=== PATIENT | female | born 1985 | race Hispanic/Latino ===

== ENCOUNTER 2019-06-09 18:01 | Outpatient (CLI) | payer MEDICAID ==
[2019-06-09 19:00] VITALS: BP 112/71
== END 2019-06-09 20:50 | disposition home or self-care (01) ==
LOC: TRG 18:01
PROVIDERS: ATTEND Obstetrics & Gynecology
DX: O47.1 False labor at or after 37 completed weeks of gestation (principal); Z3A.39 39 weeks gestation of pregnancy
CPT/HCPCS: 59025

== ENCOUNTER 2019-06-10 15:53 | Inpatient (IN) | payer MEDICAID ==
[2019-06-10] MEDS ORDERED: XYLOCAINE 2% INFILTRATI ONE (16:12)
[2019-06-10] MEDS ORDERED: STADOL IV PRN (16:12)
[2019-06-10] MEDS ORDERED: MINERAL OIL PO PRN (16:12)
[2019-06-10] MEDS ORDERED: SUBLIMAZE IV PRN (16:12)
[2019-06-10] MEDS ORDERED: BRETHINE SUB-Q PRN (16:12)
[2019-06-10] MEDS ORDERED: BRETHINE IVP PRN (16:12)
[2019-06-10 16:20] LABS: Hematocrit 38.8 % (30.3-42.9); Hemoglobin 13.2 gm/dl (10.1-14.3); Mean Corpuscular HGB Conc 34 % (30-34); Mean Corpuscular Volume 91 fl (79-97); Platelet Count 270 K/mm3 (140-440); Red Blood Count 4.29 M/mm3 (3.65-5.03); Red Cell Distribution Width 13.2 % (13.2-15.2)
--- NOTE | 2019-06-10 16:45 | History and Physical Report ---
History of Present Illness Date of examination: 06/10/19 Date of admission: 06/10/19 15:53 Chief complaint: I'm in labor History of present illness: Pt is a 33 year old who presents at 39.3 weeks in active labor. She has had an uncomplicated course. She is GBS negative. Past History Past Medical History: no pertinent history Past Surgical History: no surgical history Social history: - Obstetrical History Expected Date of Delivery: 06/14/19 Actual Gestation: 39 Week(s) 3 Day(s) : 5 Para: 4 Number of Living Children: 4 Medications and Allergies Allergies Allergy/AdvReac Type Severity Reaction Status Date / Time No Known Allergies Allergy Unverified 06/09/19 19:05 Home Medications Medication Instructions Recorded Confirmed Last Taken Type No Known Home Medications [No 06/09/19 06/09/19 Unknown History Reported Home Medications] Active Meds: Active Medications Butorphanol Tartrate (Stadol) 2 mg IV Q2H PRN PRN Reason: Pain , Severe (7-10) Ephedrine Sulfate (Ephedrine Sulfate) 10 mg IV Q2M PRN PRN Reason: Hypotension Fentanyl (Sublimaze) 100 mcg IV Q2H PRN PRN Reason: Labor Pain Oxytocin/Sodium Chloride (Pitocin/Ns 20 Unit/1000ml Drip) 20 units in 1,000 mls @ 125 mls/hr IV DIRECT MACARENA Oxytocin/Sodium Chloride (Pitocin/Ns 30 Unit/500ml) 30 units in 500 mls @ 1 mls/hr IV TITR MACARENA; Protocol Lactated Ringer's (Lactated Ringers) 1,000 mls @ 125 mls/hr IV DIRECT MACARENA Mineral Oil (Mineral Oil) 30 ml PO QHS PRN PRN Reason: Constipation Terbutaline Sulfate (Brethine) 0.25 mg SUB-Q ONCE PRN PRN Reason: Hyperstimulation/Hypertonicity Terbutaline Sulfate (Brethine) 0.25 mg IVP ONCE PRN PRN Reason: Hyperstimulation/Hypertonicity Review of Systems All systems: negative Genitourinary: vaginal bleeding, leakage of fluid, contractions - Vital Signs Vital signs: Vital Signs Pulse BP 93 H 113/72 06/10/19 16:01 06/10/19 16:01 Temp Pulse Resp BP Pulse Ox 96.8 F L 101 H 107/61 99 06/10/19 16:10 06/10/19 16:39 06/10/19 16:39 06/10/19 16:39 - Physical Exam Breasts: Positive: deferred Cardiovascular: Regular rate, Normal S1, Normal S2 Lungs: Positive: Clear to auscultation, Normal air movement Abdomen: Positive: normal appearance, soft, normal bowel sounds. Negative: distention, tenderness Vulva: both: normal Vagina: Positive: normal moisture. Negative: discharge Cervix: Negative: lesion, discharge Uterus: Positive: normal size, normal contour Adnexa: both: normal Anus/Rectum: Positive: normal perianal skin, heme negative. Negative: rectal mass, hemorrhoids Extremities: Deep Tendon Reflex Grade: Normal +2 - Obstetrical FHR: auscultation normal Cervical Dilatation: 8 Cervical Effacement Percentage: 90 station: -2 Uterine Contraction Pattern: Regular Uterine Contraction Intensity: Moderate Results Result Diagrams: 06/10/19 16:00 Abnormal lab results 06/10/19 Range/Units 16:00 WBC 13.9 H (4.5-11.0) K/mm3 All other labs normal. Assessment and Plan IUP at 39.3 in active labor. Admit to L&D. AROM when able. Anticipate .
--- NOTE | 2019-06-10 16:49 | Procedure Note ---
OB Delivery Note - Delivery Date of Delivery: 06/10/19 Surgeon: SABINE JAUREGUI Estimated blood loss: 200cc - Vaginal Delivery presentation: vertex Delivery position: OA Intrapartum events: precipitous labor- <3hr Delivery induction: none Delivery augmentation: rupture of membranes Delivery monitor: external FHT, external uterine Route of delivery: Delivery placenta: spontaneous Delivery cord: 3 umbilical vessels Episiotomy: none Delivery laceration: none Anesthesia: none Delivery comments: Viable male delivered over intact perineum with no nuchal cord at 1627. Infant had spontaneous cry and was placed on maternal abdomen. Cord clamped and cut when done pulsing. Placenta delivered spontaneously and intact with 3vc. No lacerations. Pt tolerated procedure well. Excellent hemostasis. - Infant A at 1 minute: 9 at 5 minutes: 9 Gender: Male (6 pounds 8 punces)
[2019-06-10] MEDS ORDERED: NORCO 5/325 PO PRN (16:50)
[2019-06-10] MEDS ORDERED: LACTATED RINGERS 1,000 ML IV SCH (17:00)
[2019-06-10] MEDS ORDERED: PITOCin/NS 20 UNIT/1000ML DRIP 20 UNITS/1,000 ML BAG IV SCH ×2 (17:00→18:00)
[2019-06-10] MEDS ORDERED: IBUPROFEN PO PRN (17:00)
[2019-06-10] MEDS ORDERED: PITOCin/NS 30 UNIT/500ML 30 UNITS/500 ML BAG IV SCH (17:00)
[2019-06-10] MEDS ORDERED: PHENERGAN PR PRN (18:34)
[2019-06-10] MEDS ORDERED: TORADOL IV PRN (18:34)
[2019-06-10] MEDS ORDERED: SODIUM CHLORIDE FLUSH SYRINGE 10 ML IV NR (18:34)
[2019-06-10] MEDS ORDERED: TYLENOL PO PRN (18:34)
[2019-06-10] MEDS ORDERED: LANSINOH TP PRN (18:34)
[2019-06-10] MEDS ORDERED: MILK OF MAGNESIA PO PRN (18:34)
[2019-06-10] MEDS ORDERED: ZOFRAN IV PRN (18:34)
[2019-06-10] MEDS ORDERED: DULCOLAX PR PRN (18:34)
[2019-06-10] MEDS ORDERED: BENADRYL PO PRN (18:34)
[2019-06-10] MEDS ORDERED: TUCKS PAD TP PRN (18:34)
[2019-06-10] MEDS ORDERED: PHENERGAN PO PRN (18:34)
[2019-06-10] MEDS: IBUPROFEN PO SCH (19:05)
[2019-06-10] MEDS: COLACE PO SCH (21:28)
[2019-06-10] MEDS: NORCO 5/325 PO PRN (22:12)
[2019-06-11] MEDS: IBUPROFEN PO SCH ×5 (01:35→23:58)
[2019-06-11] MEDS: NORCO 5/325 PO PRN ×3 (03:28→21:56)
[2019-06-11 05:13] LABS: Hematocrit 33.1 % (30.3-42.9); Hemoglobin 11.2 gm/dl (10.1-14.3)
[2019-06-11] MEDS ORDERED: PRENATAL VITAMIN PO SCH (10:00)
[2019-06-11] MEDS: COLACE PO SCH ×2 (10:20→21:56)
[2019-06-12] MEDS: IBUPROFEN PO SCH (05:49)
--- NOTE | 2019-06-12 15:45 | Progress Note ---
Assessment and Plan PPD2 s/p labs and vital signs stable Discharge to home today Subjective - Subjective Date of service: 06/12/19 Principal diagnosis: Interval history: Pt is PPD2 s/p of viable . Patient reports: appetite normal, voiding normally, pain well controlled, ambulating normally [place]: doing well, nursing well Objective - Vital Signs Latest vital signs: Vital Signs Temp Pulse Resp BP Pulse Ox 06/12/19 08:11 98.0 F 92 H 18 112/72 96 06/11/19 23:58 97.9 F 95 H 20 103/56 95 06/11/19 16:13 98.0 F 106 H 18 103/55 95 Intake and Output 06/11/19 06/12/19 06/12/19 23:59 07:59 15:59 Intake Total 1320 240 Balance 1320 240 Intake: Oral 840 240 Intake, Free Water 480 Other: Total, Intake Amount 240 240 # Voids Void 1 1 - Exam Cardiovascular: Present: Regular rate, Normal S1, Normal S2, No murmurs Lungs: Present: Clear to auscultation, Normal air movement Abdomen: Present: normal appearance, soft, normal bowel sounds Uterus: Present: normal, firm, fundal height below umbilicus Extremities: Present: normal
--- NOTE | 2019-06-12 15:47 | Discharge Summary ---
Providers - Providers Date of Admission: 06/10/19 15:53 Date of discharge: 06/12/19 Attending physician: SABINE JAUREGUI Primary care physician: SABINE JAUREGUI Hospitalization Reason for admission: active labor Delivery: Episiotomy: none Laceration: none Other procedures: none complications: none Discharge diagnosis: IUP at term delivered baby: male Hospital course: Pt arrived in active labor and commenced to [facility] of viable . course uncomplicated. She desires circumcision and LARC . Condition at discharge: Good Disposition: DC-01 TO HOME OR SELFCARE Plan - Discharge Medications Prescriptions: Ibuprofen [Motrin] 800 mg PO Q8HR PRN #40 tablet PRN Reason: Pain, Moderate (4-6) HYDROcodone/APAP 5-325 [[place] 5/325] 1 each PO Q4HR PRN #20 tablet PRN Reason: Pain - Provider Discharge Summary Activity: routine, no sex for 6 weeks, no heavy lifting 4 weeks, no strenuous exercise Diet: routine Instructions: routine Additional instructions: [] Smoking cessation referral if applicable(refer to patient education folder for contact #) [] Refer to [facility]'s [facility] Center Booklet Call your doctor immediately for: * Fever > 100.5 * Heavy vaginal bleeding ( >1 pad per hour) * Severe persistent headache * Shortness of breath * Reddened, hot, painful area to leg or breast * Drainage or odor from incision. * Keep incision clean and dry at all times and follow doctor's instructions regarding bathing/showering - Follow up plan Follow up: SABINE JAUREGUI MD [Primary Care Provider] - 7 Days
[2019-06-12 16:26] VITALS: BP 118/82
== END 2019-06-12 16:29 | disposition home or self-care (01) | DRG 775 ==
LOC: LD 15:53 → OB 18:32
PROVIDERS: ADMIT Obstetrics & Gynecology; ATTEND Obstetrics & Gynecology
PROC: 10E0XZZ Delivery of Products of Conception, External Approach (ICD-10-PCS; principal; 2019-06-10)
DX: O62.3 Precipitate labor (principal); Z3A.39 39 weeks gestation of pregnancy; Z37.0 Single live birth
CPT/HCPCS: 36415; 85014; 85018; 85027; 86592; 86850; 86900; 86901; G0378; J2590